=== PATIENT | female | born 1980 | race Caucasian/White ===

== ENCOUNTER 2017-07-15 12:01 | Outpatient (CLI) | payer OTHER ==
[~2017-07-15] VITALS: Ht 175.3 cm; Wt 81.5 kg
[2017-07-15 12:19] VITALS: BP 127/83; PULSE 97; RESP 18; Ht 175.3 cm; Wt 81.5 kg
[2017-07-15] MEDS ORDERED: PREN-93 PO (12:19)
[2017-07-15] MEDS ORDERED: RANI-428 PO (12:19)
[2017-07-15 12:56] LABS: ADD UMIC NO; UR ASCORBIC ACID NEGATIVE (NEGATIVE); UR BILIRUBIN (Dip) NEGATIVE (NEGATIVE); UR BLOOD (Dip) NEGATIVE (NEGATIVE); UR CLARITY CLEAR (CLEAR); UR COLOR STRAW (YELLOW); UR GLUCOSE (Dip) NEGATIVE (NEGATIVE); UR KETONES (Dip) NEGATIVE (NEGATIVE); UR LEUKOCYTE ESTERASE (Dip) NEGATIVE Leu/ul (NEGATIVE); UR NITRITE (Dip) NEGATIVE (NEGATIVE); UR SPECIFIC GRAVITY (Dip) 1.009 (1.003-1.030); UR TOTAL PROTEIN (Dip) NEGATIVE (NEGATIVE); UR UROBILINOGEN (Dip) NEGATIVE (NEGATIVE)
[2017-07-15 12:59] LABS: BASOPHIL # 0.1 10^3/ul (0.0-0.1); BASOPHILS % 0.5 % (0.0-2.0); EOSINOPHILS % 0.3 % (0.0-7.0); HEMATOCRIT 39.6 % (37.0-47.0); HEMOGLOBIN 13.3 g/dl (12.0-16.0); LYMPHOCYTES % 8.1 % (15.0-51.0); MEAN CORPUSCULAR HEMOGLOBIN 29.2 pg (29.0-33.0); MEAN CORPUSCULAR HGB CONC 33.6 g/dl (32.0-37.0); MEAN CORPUSCULAR VOLUME 86.8 fl (82.0-101.0); MEAN PLATELET VOLUME 10.6 fl (7.4-10.4); MONOCYTE # 0.6 10^3/ul (0.3-0.9); MONOCYTES % 4.9 % (0.0-11.0); NEUTROPHIL # 10.5 10^3/ul (1.6-7.5); PLATELET COUNT 265 10^3/UL (140-415); RED BLOOD COUNT 4.56 10^6/ul (4.20-5.40); RED CELL DISTRIBUTION WIDTH 13.4 % (11.5-14.5); WHITE BLOOD COUNT 12.3 10^3/ul (4.8-10.8)
[2017-07-15 13:15] LABS: INR 0.91; PROTIME 12.3 Sec (12.2-14.2)
[2017-07-15 13:17] LABS: ALBUMIN 3.7 g/dl (3.3-4.9); ALBUMIN/GLOBULIN RATIO 1.15; BILIRUBIN,INDIRECT 0.2 mg/dl (0-1.1); BILIRUBIN,TOTAL 0.2 mg/dl (0.2-1.3); CALCIUM 8.7 mg/dl (8.4-10.2); CREATININE 0.65 mg/dl (0.44-1.00); POTASSIUM 3.6 mmol/L (3.5-5.1); TOTAL PROTEIN 6.9 g/dl (6.1-8.1); URIC ACID 4.2 mg/dl (3.1-7.9)
--- NOTE | 2017-07-15 13:58 | RADRPT ---
PROCEDURE: US OB biophysical profile. CLINICAL INDICATION: evaluation, hypertension TECHNIQUE: Multiple sonographic images of the pelvis were obtained. The images were reviewed on a PACS workstation. COMPARISON: No prior studies are available for comparison. FINDINGS: There is a single viable intrauterine gestation. Cardiac activity is present with 139 beats per min ramona. There is a vertex presentation. The placenta is posterior and fundal. There is no evidence of placental abruption. There is a normal amount of amniotic fluid with an NI = 12.0 cm. Biophysical profile: movement 2/2 tone 2/2. breathing 2/2 NI 2/2 Total 04/20 RPTAT: AA . IMPRESSION: Normal biophysical profile. Physician Claudia Date Time Electronically viewed and signed by Physician Claudia on 07/15/2017 13:58 RA/
--- NOTE | 2017-07-15 14:35 | TRIAGE ---
OB Triage Datetime Report Generated by CPN: 07/15/2017 14:35 Datetime: 07/15/2017 14:00 Stage of : OB Triage Maternal Assessment Level of Consciousness: Fully Conscious Labor Evaluation Frequency: 1UC/HR Monitor Mode: External Duration (sec)2399: 90 Quality: Mild Resting Tone [place]: Relaxed Heart Rate FHR Baseline Rate: 125 Monitor Mode: External US Variability: Moderate 6-25 bpm Accelerations: 15X15 Decelerations: None Pain Assessment Pain Scale: 0 Pain Goal: 3 Vaginal Exam Membrane Status: Intact Vaginal Bleeding: None Datetime: 07/15/2017 13:00 Stage of : OB Triage Maternal Assessment Level of Consciousness: Fully Conscious Labor Evaluation Frequency: NONE Monitor Mode: External Resting Tone [place]: Relaxed Heart Rate FHR Baseline Rate: 125 Monitor Mode: External US Variability: Moderate 6-25 bpm Accelerations: 15X15 Decelerations: None Category: Category I Pain Assessment Pain Scale: 0 Pain Goal: 3 Vaginal Exam Membrane Status: Intact Vaginal Bleeding: None Datetime: 07/15/2017 12:19 EGA: 35.4 Datetime: 07/15/2017 12:14 Assessment Type: Triage Maternal Assessment Level of Consciousness: Fully Conscious DTR's/Clonus: DTRs 2+; No Clonus Headache: Denies Blurred Vision: No Respiratory Effort: Unlabored; Regular Rhythm; Equal Expansion Breath Sounds, Left: Clear and Equal Breath Sounds, Right: Clear and Equal Nausea/Vomiting: Denies RUQ Epigastric Pain: Denies Lower Extremities Edema: None Degree: None Upper Extremities Edema: None Degree: None Facial Edema: None Fall Risk Assessment History of Falling: (0) No Secondary Diagnosis: (0) No Ambulatory Aid: (0) Bedrest/Nurse Assist IV Therapy: (0) No Gait: (0) Normal/Bedrest/Immobile Mental Status: (0) Oriented to Own Ability Fall Score: 0 Fall Risk Score Definition: No Risk: No action required Datetime: 07/15/2017 12:13 Time of Arrival: 07/15/2017 11:52 Arrived By: Ambulatory Arrived From: Office Chief Complaint: PT SENT FROM OB CLINIC WITH HBP Movement: Present Contractions: Denies/Absent Rupture of Membranes: Denies Vaginal Bleeding: None Vaginal Discharge: Denies Recent Sexual Intercouse: Denies Abdominal Trauma: Not Applicable Patient Complaints: None Time Provider Notified: 07/15/2017 12:30 Provider Notified: PATSY Initial Plan: EFM/BPP/PIH PANEL Datetime: 07/15/2017 12:04 Monitor Mode: External Monitor Mode: External US
--- NOTE | 2017-07-15 14:55 | CONS ---
Date/Time of Note Date/Time of Note DATE: 07/15/17 TIME: 14:46 Consultation Date/Type/Reason Admit Date/Time July 15, 2017 OB triage consult This patient is a 36 years old 3 para 1 1 1 previous spontaneous vaginal delivery. Her estimated date of confinement is August 15, 2017 which makes her 35 weeks and 4 days now. She was referred to triage for monitoring and evaluation of hypertension during this . On examination her general vital signs are normal except for slightly and relatively elevated blood pressure her first blood pressure was 127/83 subsequently had 133/82 and again 127/19 117/70 and finally 135/84 her pulse rate is 97,, respiration, temperature 98.9, oxygen saturation was 99 at room temper On physical examination her ear nose throat appears to be normal, neck was normal no neck vein distention no thyromegaly. abdomen was soft no contractions heart tones were reactive NST shows good variability and occasional acceleration no decelerations. Reason for Consultation Laboratory Tests Test 07/15/17 12:00 07/15/17 12:40 Urine Color STRAW Urine Clarity CLEAR Urine pH 7.0 Urine Specific [place] 1.009 Urine Ketones NEGATIVEmg/dL Urine Nitrite NEGATIVEmg/dL Urine Bilirubin NEGATIVEmg/dL Urine Urobilinogen NEGATIVEmg/dL Urine Leukocyte Esterase NEGATIVELeu/ul Urine Hemoglobin NEGATIVEmg/dL Urine Glucose NEGATIVEmg/dL Urine Total Protein NEGATIVEmg/dl White Blood Count 12.310^3/ul Red Blood Count 4.5610^6/ul Hemoglobin 13.3g/dl Hematocrit 39.6% Mean Corpuscular Volume 86.8fl Mean Corpuscular Hemoglobin 29.2pg Mean Corpuscular Hemoglobin Concent 33.6g/dl Red Cell Distribution Width 13.4% Platelet Count 65771^3/UL Mean Platelet Volume 10.6fl Neutrophils % 85.0% Lymphocytes % 8.1% Monocytes % 4.9% Eosinophils % 0.3% Basophils % 0.5% Nucleated Red Blood Cells % 0.0/100WBC Neutrophils # 10.510^3/ul Lymphocytes # 1.010^3/ul Monocytes # 0.610^3/ul Eosinophils # 0.010^3/ul Basophils # 0.110^3/ul Nucleated Red Blood Cells # 0.010^3/ul Prothrombin Time 12.3Sec Prothrombin Time Ratio 1.0 INR International Normalized Ratio 0.91 Activated Partial Thromboplast Time 28.0Sec Fibrinogen 568.0mg/dl Sodium Level 136mmol/L Potassium Level 3.6mmol/L Chloride Level 105mmol/L Carbon Dioxide Level 23mmol/L Anion Gap 12 Blood Urea Nitrogen 6mg/dl Creatinine 0.65mg/dl Glucose Level 88mg/dl Uric Acid 4.2mg/dl Calcium Level 8.7mg/dl Total Bilirubin 0.2mg/dl Direct Bilirubin 0.00mg/dl Indirect Bilirubin 0.2mg/dl Aspartate Amino Transf (AST/SGOT) 31IU/L Alanine Aminotransferase (ALT/SGPT) 27IU/L Alkaline Phosphatase 184IU/L Total Protein 6.9g/dl Albumin 3.7g/dl Globulin 3.20g/dl Albumin/Globulin Ratio 1.15 Constitutional: No chills, No diaphoresis, No disoriented, No febrile, No improved, No no complaints, No other, No poor po, No requiring IVF, No requiring O2 Eyes: No discharge, No no complaints, No other, No pain, No redness, No visual change ENT: No bleeding, No congestion, No discharge, No dysphagia, No no complaints, No other, No pain, No sore throat Respiratory: No cough, No no complaints, No other, No pain, No pleuritic pain, No shortness of breath, No sputum, No wheezing Cardiovascular: No chest pain, No edema, No lightheadedness, No no complaints, No orthopenea, No other, No palpitations, No paroxysmal nocturnal dyspnea Gastrointestinal: No blood, No constipation, No decreased appetite, No diarrhea , No flatus, No nausea, No no complaints, No other, No pain, No passing stool, No vomiting Genitourinary: other (Pelvic examination was not performed due to the fact that she did not have any contractions), No bleeding, No discharge, No dysuria, No flank pain, No hematuria, No no complaints Musculoskeletal: No back pain, No bone/joint pain, No neck pain, No no complaints, No other, No restricted range of motion, No swelling Skin: No bruising, No erythema, No laceration, No no complaints, No other, No pruritis, No rash, No skin lesions Neurologic: No confusion, No dizziness, No focal-weakness, No headache, No no complaints, No other, No seizure, No syncope Endocrine: other (Knee-jerk reflex was normal) Lymphatic: adenopathy, lymphadema, no complaints, other, tender nodes Additional Comments On laboratory study her lab tests were basically normal ;electrolytes were within normal limits ,liver function tests were normal ,glucose level was 88 and the rest of the Chem-12 were normal. Her CBC also was normal except for slightly elevated WBC of 12.3 all other part of the CBC was normal On urine test all components were negative; ketone, blood glucose all of them were negative or normal Coagulation profile came back within normal limit. We did an ultrasound study ;report was a single viable intrauterine gestation with cardiac activity 139 bpm in vertex presentation ,placenta was posterior no evidence of abruption, amniotic fluid index was 12.0 cm, her biophysical profile was reported 04/20. Disposition: With these normal finding patient was reassured however we mentioned to her due to occasional elevated blood pressure should be careful and closely monitored and she may return in a week for repeat of few of these test Social History Smoking Status: Never smoker Exam/Review of Systems Vital Signs Vitals Vital Signs Date Time Temp Pulse Resp B/P Pulse Ox O2 Delivery O2 Flow Rate FiO2 07/15/17 12:19 98.9 97 18 127/83 99 Room Air Results Result Diagram: 07/15/17 1240 07/15/17 1240 Results 24 hrs Laboratory Tests Test 07/15/17 12:00 07/15/17 12:40 Urine Color STRAW Urine Clarity CLEAR Urine pH 7.0 Urine Specific [place] 1.009 Urine Ketones NEGATIVE Urine Nitrite NEGATIVE Urine Bilirubin NEGATIVE Urine Urobilinogen NEGATIVE Urine Leukocyte Esterase NEGATIVE Urine Hemoglobin NEGATIVE Urine Glucose NEGATIVE Urine Total Protein NEGATIVE White Blood Count 12.3 H Red Blood Count 4.56 Hemoglobin 13.3 Hematocrit 39.6 Mean Corpuscular Volume 86.8 Mean Corpuscular Hemoglobin 29.2 Mean Corpuscular Hemoglobin Concent 33.6 Red Cell Distribution Width 13.4 Platelet Count 265 Mean Platelet Volume 10.6 H Neutrophils % 85.0 H Lymphocytes % 8.1 L Monocytes % 4.9 Eosinophils % 0.3 Basophils % 0.5 Nucleated Red Blood Cells % 0.0 Neutrophils # 10.5 H Lymphocytes # 1.0 Monocytes # 0.6 Eosinophils # 0.0 Basophils # 0.1 Nucleated Red Blood Cells # 0.0 Prothrombin Time 12.3 Prothrombin Time Ratio 1.0 INR International Normalized Ratio 0.91 Activated Partial Thromboplast Time 28.0 Fibrinogen 568.0 H Sodium Level 136 Potassium Level 3.6 Chloride Level 105 Carbon Dioxide Level 23 Anion Gap 12 Blood Urea Nitrogen 6 L Creatinine 0.65 Glucose Level 88 Uric Acid 4.2 Calcium Level 8.7 Total Bilirubin 0.2 Direct Bilirubin 0.00 Indirect Bilirubin 0.2 Aspartate Amino Transf (AST/SGOT) 31 Alanine Aminotransferase (ALT/SGPT) 27 Alkaline Phosphatase 184 H Total Protein 6.9 Albumin 3.7 Globulin 3.20 Albumin/Globulin Ratio 1.15 MIKE RODRÍGUEZ MD Jul 15, 2017 14:55
== END 2017-07-15 14:31 | disposition home or self-care (01) ==
LOC: OBT 12:01 → L-D 12:01 → OBT 14:31
PROVIDERS: ATTEND Obstetrics & Gynecology
DX: O16.3 Unspecified maternal hypertension, third trimester (principal); Z3A.35 35 weeks gestation of pregnancy
CPT/HCPCS: 76818; 80053; 81003; 84560; 85025; 85384; 85610; 85730; Z7500; G0463